=== PATIENT | female | born 1995 | race Caucasian/White ===

== ENCOUNTER 2018-07-23 13:15 | Emergency (ER) | payer OTHER, SELFPAY | END 2018-07-23 14:02 | disposition home or self-care (01) | LOC: SCSER 13:15 | DX: J02.0 Streptococcal pharyngitis (principal); Z87.891 Personal history of nicotine dependence | CPT/HCPCS: 87430; 99283 ==

== ENCOUNTER 2019-04-27 14:47 | Outpatient (CLI) | payer BC, OTHER ==
--- NOTE | 2019-04-27 15:46 | ULT ---
Complete obstetrical ultrasound INDICATION: Evaluate anatomy TECHNIQUE: Grayscale, M-mode Doppler and Doppler images were obtained of the abdomen and pelvis to ev aluate the patient's known . COMPARISON: None. FINDINGS: Number of gestations: Single. Presentation: Breech. Placental location: Posterior Previa: No evidence for previa. Cervical length: 3.1 cm without evidence of funneling. NICK: 14.60 cm. heart rate: 149 bpm. Biparietal diameter: 4.62cm, 20 weeks and 0 days, Not calculated.. Head circumference: 17.63 cm, 20 weeks and 1 day, Not calculated. Abdominal circumference: 14.91 cm, 20 weeks and 2 days, Not calculated. Femoral length: 3.20cm, 20 weeks and 0 days, Not calculated. Estimated weight: 331 g +/- 48g 0 lbs. 12 oz. +/- 2 ounces, 34th percentile SURVEY: head: Normal appearing. Cerebellum: Normal appearing. Cisterna magna: Normal appearing. Lateral ventricles: Normal appearing. 4 chamber heart: Normal appearing.. Stomach: Normal appearing. Kidneys: Normal appearing. Cord insertion: Normal appearing. Bladder: Normal appearing. Spine: Normal appearing. Lips and nose: Normal appearing. Extremities: Normal appearing. Three-vessel CORD: Normal appearing. The average gestational age by ultrasound is 20 weeks and 1 daywith estimated due date of September 12. The estimated dates by clinical data is 20 weeks and 2 dayswith estimated due date of September 12, 2019. IMPRESSION: 1. Single live intrauterine gestation with size and dates as above.
== END 2019-04-27 14:48 | disposition home or self-care (01) ==
LOC: BICULT 14:47
PROVIDERS: ATTEND Family Medicine
DX: Z34.82 Encounter for supervision of other normal pregnancy, second trimester (principal); Z3A.20 20 weeks gestation of pregnancy
CPT/HCPCS: 76805

== ENCOUNTER 2019-06-25 11:25 | Day surgery (SDC) | payer OTHER ==
[2019-06-25 11:56] VITALS: BMI 23.8
[2019-06-25] MEDS ORDERED: hydrALAZINE 20 MG/ML VIAL SLOW IVP PRN (12:14)
--- NOTE | 2019-06-25 12:55 | ULT ---
EXAM: [facility] PROVIDED CLINICAL HISTORY: Intrauterine gestation. Evaluate cervical length. COMPARISON: 04/27/2019 FINDINGS: Again noted is evidence of a single intrauterine gestation which is now in cephalic presentation. Car diac Doppler does demonstrates heart tones with a heart rate of 143 bpm. The placenta is located posteriorly and is low lying. The cervical length measures 4.85 cm. Subjectively, there is a normal amount of amniotic fluid. measurements were not obtained, and the needle anatomical structures were also not evaluated on this exam. IMPRESSION: 1. Low-lying placenta. Follow-up evaluation in 4-6 weeks is recommended. 2. Single intrauterine gestation with heart tones documented. 2. Cervical length measures 4.85 cm.
[2019-06-25 13:28] LABS: Bacteria/HPF None Seen HPF (None Seen); Bilirubin Negative (Negative); Blood, Urine Negative (Negative); Clarity Clear (Clear); Glucose, Urine (Dipstick) Normal (Negative); Leukocyte Negative Leu/uL (Negative); Nitrite Negative (Negative); Protein, Urine (Dipstick) Negative (Neg-Trace); RBC/HPF 0-3 HPF (0-3); Squamous Epithelial None Seen HPF (0-3); Urobilinogen Normal mg/dL (Less than 2); WBC/HPF 0-3 HPF (0-3)
[2019-06-25 13:30] LABS: Urine Culture Reflex No No
--- NOTE | 2019-06-25 14:32 | PRG ---
DATE OF SERVICE: 06/25/2019 TIME OF SERVICE: 1400 hours. PRESENTING COMPLAINT: A 28-weeks' gestation with lower abdominal pain and pressure, status post intercourse. HISTORY OF PRESENT ILLNESS: Ms. Hobson is a 23-year-old, 3, para 2, at 28 weeks by stated LAUREN, previous x2, sees Dr. Manriquez. Antepartum records not available on the unit. She reports uncomplicated . States she had sex with her last night and since then has been having some pressure and cramping. She denies bleeding or leakage of fluid. She reports an active fetus. 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 No obstetrical record available on the unit. x2. MEDICAL HISTORY: Denies. SURGICAL HISTORY: Denies. ALLERGIES: DENIES. MEDICATIONS: vitamins. SOCIAL HISTORY: Denies tobacco, alcohol, or IV drug abuse. FAMILY HISTORY: Noncontributory. REVIEW OF SYSTEMS: Noncontributory. PHYSICAL EXAMINATION: GENERAL: Thin white female, in no acute distress. VITAL SIGNS: Blood pressure 108/72, pulse 85, respirations 18, temperature 98.2. HEENT: Within normal limits. LUNGS: Clear to auscultation bilaterally. HEART: Regular rate and rhythm. ABDOMEN: Soft and nontender. Fundal height 28. FHTs 150s. Vulva without lesions. Vaginal exam deferred. EXTREMITIES: Without clubbing, cyanosis, or edema. LABORATORY DATA: Straight catheterization was performed out, which revealed 1+ ketones, however, was otherwise unremarkable. Ultrasound was performed for cervical length, which revealed a cervix measuring 4.85 cm in greatest length, cephalic presentation, posterior placenta that was low-lying. IMPRESSION: 1. A 28 weeks' gestation. 2. No evidence of labor. 3. Low-lying posterior placenta. PLAN: Discharge home. Keep scheduled followup with Dr. Manriquez. Recommend followup ultrasound of low-lying posterior placenta. Job ID: [id number]
== END 2019-06-25 14:20 | disposition home or self-care (01) ==
LOC: L&D/OP 11:25
PROVIDERS: ATTEND Family Medicine
DX: O99.89 Other specified diseases and conditions complicating pregnancy, childbirth and the puerperium (principal); R10.30 Lower abdominal pain, unspecified; Z3A.28 28 weeks gestation of pregnancy
CPT/HCPCS: 51701; 76815; 81001; 99283

== ENCOUNTER 2019-09-03 09:27 | Inpatient (IN) | payer BC, OTHER ==
[2019-09-03] MEDS ORDERED: Promethazine HCl 25 MG/ML VIAL IM PRN ×2 (09:56→14:21)
[2019-09-03] MEDS ORDERED: Ibuprofen 800 MG TAB PO PRN (09:56)
[2019-09-03] MEDS ORDERED: HYDROcodone/Acetaminophen 5/325 mg Tablet PO PRN ×2 (09:56→22:28)
[2019-09-03] MEDS ORDERED: Carboprost 250 MCG/ML AMP IM PRN (09:56)
[2019-09-03] MEDS ORDERED: Misoprostol 200 MCG TAB PR PRN (09:56)
[2019-09-03] MEDS ORDERED: NS / Oxytocin 40 units/1000ml 1,000 ML IV PRN (09:56)
[2019-09-03] MEDS ORDERED: Diphenoxylate HCl/Atropine Tablet PO PRN (09:56)
[2019-09-03] MEDS ORDERED: Methylergonovine 0.2 MG/ML VIAL IM PRN (09:56)
[2019-09-03] MEDS ORDERED: Ondansetron PF 4 MG/2 ML Vial IVP PRN ×3 (09:56→22:28)
[2019-09-03] MEDS ORDERED: Lidocaine 1% (PF) 30 ML VIAL SC PRN (09:56)
[2019-09-03] MEDS ORDERED: hydrALAZINE 20 MG/ML VIAL SLOW IVP PRN ×2 (09:56→22:28)
[2019-09-03] MEDS ORDERED: NS w/ Oxytocin 10 units 500 ML IV SCH ×2 (10:00)
[2019-09-03 10:33] VITALS: BMI 25.0
[2019-09-03 11:03] LABS: Hemoglobin 9.8 g/dL (12.0-16.0); Mean Corpuscular HGB CONC 34.2 g/dL (32.0-36.0); Mean Corpuscular Hemoglobin 30.2 pg (27.0-31.0); Mean Corpuscular Volume 88.5 fL (78.0-98.0); Mean Platelet Volume 7.9 fL (7.4-10.4); Platelet Count 299 thou/uL (130-400); RBC Distribution Width 11.3 % (11.5-14.5); Red Blood Cell (RBC) Count 3.25 mill/uL (4.20-5.40); White Blood Cell (WBC) Count 9.1 thou/uL (4.8-10.8)
[2019-09-03] MEDS: Butorphanol Tartrate 1 MG/ML VIAL SLOW IVP PRN ×2 (11:10→12:24)
[2019-09-03] MEDS: Lactated Ringer's 1,000 ML IV SCH ×2 (11:13→14:19)
[2019-09-03 11:43] LABS: Hep B Surf Ag Non-Reactive S/CO (NonReactive); Syphilis Antibody Nonreactive (Nonreactive); Syphilis Antibody Index 0.04 S/CO (<1.00 Non-Reactive)
[2019-09-03] MEDS ORDERED: Fentanyl 4 mcg/Bup 0.1% Cadd 100 ML ONE (13:28)
[2019-09-03] MEDS ORDERED: diphenhydrAMINE 50 MG/ML VIAL IVP PRN (14:21)
[2019-09-03] MEDS ORDERED: Naloxone HCl 0.4 mg/ml Vial IVP PRN ×2 (14:21)
[2019-09-03] MEDS ORDERED: EPHEDRINE 25 MG/5 ML SYRINGE SLOW IVP PRN (14:21)
[2019-09-03] MEDS ORDERED: Lactated Ringer's 500 ML IV PRN (14:21)
[2019-09-03] MEDS ORDERED: Acetaminophen 325 MG TAB PO PRN (14:21)
[2019-09-03] MEDS ORDERED: Fentanyl 4 mcg/Bupivacaine 0.1% Cassette 100 ML EPIDURAL SCH (14:30)
[2019-09-03] MEDS ORDERED: Communication Order-Pharmacy FS SCH (14:30)
[2019-09-03] MEDS ORDERED: Milk Of Magnesia 30 ML UDCUP PO PRN (22:28)
[2019-09-03] MEDS ORDERED: diphenhydrAMINE 25 MG CAP PO PRN (22:28)
[2019-09-03] MEDS ORDERED: Lanolin Ointment 7 GM TUBE TOP PRN (22:28)
[2019-09-03] MEDS ORDERED: Benzocaine-Menthol 82.5 ML CAN TOP PRN (22:28)
[2019-09-03] MEDS ORDERED: NS / Oxytocin 40 units/1000ml 1,000 ML IV SCH (22:28)
[2019-09-03] MEDS ORDERED: Bisacodyl 10 MG SUPP PR PRN (22:28)
[2019-09-03] MEDS ORDERED: Preparation H Ointment 57 gram tube RC PRN (22:28)
[2019-09-03] MEDS ORDERED: Docusate Calcium (SURFAK) 240 MG CAP PO SCH (22:45)
[2019-09-04] MEDS: Ibuprofen 800 MG TAB PO SCH ×3 (00:19→16:09)
[2019-09-04] MEDS: HYDROcodone/Acetaminophen 5/325 mg Tablet PO PRN ×2 (04:44→18:46)
[2019-09-04 06:01] LABS: Hemoglobin 9.3 g/dL (12.0-16.0); Mean Corpuscular HGB CONC 33.8 g/dL (32.0-36.0); Mean Corpuscular Hemoglobin 30.1 pg (27.0-31.0); Mean Corpuscular Volume 89.1 fL (78.0-98.0); Mean Platelet Volume 7.7 fL (7.4-10.4); Platelet Count 288 thou/uL (130-400); RBC Distribution Width 11.4 % (11.5-14.5); Red Blood Cell (RBC) Count 3.09 mill/uL (4.20-5.40); White Blood Cell (WBC) Count 13.3 thou/uL (4.8-10.8)
[2019-09-04] MEDS: Ferrous Sulfate 325 MG TAB PO SCH ×2 (07:56→16:08)
[2019-09-04] MEDS ORDERED: Prenatal Vitamin 1 TAB PO SCH (09:00)
[2019-09-04] MEDS ORDERED: Adacel (T-DAP) 0.5 ML SYRINGE IM ONE (09:00)
[2019-09-04] MEDS ORDERED: Docusate Calcium (SURFAK) 240 MG CAP PO SCH (09:00)
[2019-09-04 17:40] VITALS: BP 106/60; TEMP 98.6
== END 2019-09-04 19:20 | disposition home or self-care (01) | DRG 807 ==
LOC: L&D/OP 09:27 → L&D-LIB 09:46 → 3SE 22:55
PROVIDERS: ADMIT Family Medicine; ATTEND Family Medicine
PROC: 10D07Z6 Extraction of Products of Conception, Vacuum, Via Natural or Artificial Opening (ICD-10-PCS; principal; 2019-09-03)
DX: O80 Encounter for full-term uncomplicated delivery (principal); Z37.0 Single live birth
CPT/HCPCS: 36415; 85027; 86780; 86850; 86900; 86901; 87340; J0595; J2590

== ENCOUNTER 2022-02-12 19:38 | Emergency (ER) | payer BC, OTHER ==
[2022-02-13] MEDS ORDERED: HYDROcodone/Acetaminophen 5/325 mg Tablet ONE (00:02)
== END 2022-02-13 01:00 | disposition home or self-care (01) ==
LOC: ERS 19:38
DX: S46.912A Strain of unspecified muscle, fascia and tendon at shoulder and upper arm level, left arm, initial encounter (principal); Z87.891 Personal history of nicotine dependence; X58.XXXA Exposure to other specified factors, initial encounter; Y93.72 Activity, wrestling
CPT/HCPCS: 99283